=== PATIENT | female | born 1985 | race Caucasian/White ===

== ENCOUNTER 2023-03-10 12:04 | Emergency (ER) | payer OTHER, SELFPAY ==
[2023-03-10] VITALS (8 sets, daily range): BP systolic 114–145; BP diastolic 68–93; PULSE 60–81; RESP 16–24; O2SAT 100; BMI 28.3
--- NOTE | 2023-03-10 12:21 | ECG_ITS ---
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 Measurements Intervals [place] Rate: 76 P: 134 LA: 140 QRS: 127 QRSD: 106 T: 91 QT: 381 QTc: 429 Interpretive Statements SINUS RHYTHM WITH SINUS ARRHYTHMIA ARM LEADS REVERSED [INVERTED P AND QRS IN I] No previous ECG available for comparison Electronically Signed On 03-11-2023 5:58:45 CDT by Adina Acosta M.D. [email or web address]
--- NOTE | 2023-03-10 12:34 | CT_ITS ---
WS: [id number] CT HEAD NONCONTRAST HISTORY: AMS TECHNIQUE: Contiguous axial imaging performed through the brain in 2.5 mm imaging. Bone and soft tiss ue windows. Sagittal and coronal reformats reviewed. All CT scans at [facility] use at least one of these dose optimization techniques: automated exposure control; mA and/or kV adjustment per pa tient size (includes targeted exams where dose is matched to clinical indication); or iterative recon struction. DLP: 1111.20 mGy.cm COMPARISON: None available. No acute intracranial hemorrhage, midline shift or mass effect. No atrophy or prior infarcts or herniation. Ventricles: Normal size with no hydrocephalus. Paranasal sinuses: As visualized are clear. Mastoid air cells: Well pneumatized. Calvarium and scalp: Skull is intact with no soft tissue edema or swelling. CT/CT head wo con* [id number] IMPRESSION: Negative head CT.
[2023-03-10 12:40] LABS: Basophils % 0.7 %; Eosinophils # 0.1 10^3/uL (0.0-0.8); Eosinophils % 1.3 %; Hemoglobin 13.8 g/dL (11.5-15.3); Lymphocytes # 2.1 10^3/uL (0.8-4.8); Lymphocytes % 35.4 %; Mean Corpuscular HGB Conc 32.1 g/dL (30.0-36.0); Mean Corpuscular Volume 90.3 fl (81-99); Mean Platelet Volume 10.7 fL (7.4-10.4); Monocytes # 0.3 10^3/uL (0.2-0.9); Monocytes % 4.9 %; Neutrophils # 3.42 10^3/uL (1.8-7.7); Neutrophils % 57.5 %; Nucleated Red Blood Cells % 0 %; Platelet Count 264 10^3/cmm (130-400); Red Blood Count 4.76 10^6/uL (4.1-5.3); Red Cell Distribution Width 13.1 % (12.1-15.1); White Blood Count 5.9 10^3/uL (4.0-10.0)
[2023-03-10 13:05] LABS: Alanine Aminotransferase 36 U/L (0-33); Albumin Level 4.8 g/dL (3.5-5.2); Alkaline Phosphatase 52 U/L (35-105); Anion Gap 12.8 (5-19); Aspartate Amino Transferase 25 U/L (0-32); Blood Urea Nitrogen 7 mg/dL (6-20); Calcium 9.3 mg/dL (8.5-10.5); Carbon Dioxide 26 mmol/L (22-29); Chloride 103 mmol/L (98-107); Globulin 2.9 g/dL (1.3-4.6); Glomerular Filtration Rate 112.5 mL/min (90-130); Glucose 82 mg/dL (65-115); HCG, Serum Qual Negative (Negative); Lipase 28 U/L (13-60); Osmolality Calculated 283 mOsm/kg (285-295); Potassium 3.8 mmol/L (3.5-5.1); Sodium 138 mmol/L (136-145); Total Bilirubin 0.3 mg/dL (0.15-1.2); Total Protein 7.7 g/dL (6.6-8.7)
[2023-03-10 13:06] LABS: Acetaminophen < 5.0 ug/mL (10-30); Salicylate < 0.3 mg/dL (3-10)
--- NOTE | 2023-03-10 13:07 | ED_ITS ---
HPI - General Adult General: Chief complaint: Neuro Symptoms/Deficit Stated complaint: AMS,DIZZY Time Seen by Provider: 03/10/23 12:10 Source: patient Mode of arrival: ambulatory History of Present Illness: 37-year-old female who presents to the emergency room complaining of dizziness. States last several days she has not felt herself that she is dizzy at times she drove herself in to be seen. No vomiting no fever sweats or chills. No headache no recent trauma. She denies using any drugs or alcohol. Onset (ago): minute(s) Location: head Severity: mild Relieving factors: none Exacerbating factors: none Associated symptoms: Deny chest pain, confusion, cough, diaphoresis, decreased appetite, dyspnea, fevers/chills, headache(s), malaise, nausea, rash, palpitations, seizures, short of breath, syncope, vomiting or weakness Treatments prior to arrival: none Review of Systems Const: Denies: fever(s), chills, fatigue, malaise or diaphoresis ENMT: Denies: throat pain, ear or mastoid pain, nasal discharge or nasal sridevi estion Card: Denies: chest pain, palpitations or syncope Resp: Denies: dyspnea GI: Denies: abdominal pain, nausea or vomiting : Denies: flank pain, difficulty voiding, dysuria, urinary frequency or urinary urgency Skin/Breast: Denies: rash Neuro: Denies: headache(s) or confusion [facility] ED Female Reproductive History: Date of last menstrual period: 03/07/23 Physical Exam Const: GENERAL APPEARANCE: cooperative and comfortable ORIENTATION/CONSCIOUSNESS: Yes awake, Yes oriented to person, Yes oriented to place and Yes oriented to time HENMT: COMMON NORMALS: normocephalic, atraumatic and hearing grossly normal bilaterally HEAD & SCALP: normocephalic and atraumatic Resp: COMMON NORMALS: normal respiratory effort, No retractions, No use of accessory muscles and clear to auscultation bilaterally AUSCULTATION: clear to auscultation bilaterally Cardio: COMMON NORMALS: regular rate, regular rhythm and No murmurs present (Cardio) RATE: regular rate RHYTHM: regular rhythm GI: COMMON NORMALS: Soft to palpation and No hepatosplenomegaly present AUSCULTATION: Yes normoactive bowel sounds PALPATION: Yes Soft to palpation, No Tenderness to palpation present (GI), No Guarding due to palpation present (GI) and Yes No hepatosplenomegaly present Extremity: COMMON NORMALS: normal to inspection, capillary refill normal, no clubbing, cyanosis or edema, no calf tenderness and no pedal edema Neuro: SENSORIUM/ORIENTATION: Yes oriented to person, Yes oriented to place and Yes oriented to time Skin: COMMON NORMALS: no rashes or lesions noted GENERAL SKIN EXAM: no rashes or lesions noted Course Vital Signs: Vital signs: Vital Signs Pulse Rate 81 03/10/23 15:23 Respiratory Rate 24 H 03/10/23 14:00 Blood Pressure 118/77 03/10/23 15:23 Pulse Oximetry 100 03/10/23 15:23 Oxygen Delivery Me thod Room Air 03/10/23 13:30 MDM - General Adult Medical Decision Making CT CTA of the head and neck are all negative. She did have slurred speech when she first arrived the only positive finding on exam or labs. Positive marijuana screen she did admit to using marijuana and states she has not used any today but the time the work-up was complete all of her symptoms are completely resolved she is feeling much better and she would like to go home. Her stroke score was a 1 for dysarthria which has resolved. She would like to go home and do not really have anything requiring admission at this point if she has recurrent symptoms return to the emergency room. Medical Records I reviewed the patient's medical records. Lab Data I reviewed the patient's lab results. 03/10/23 12:30 03/10/23 12:[address] 03/10/23 12:34 IMPRESSION: Negative head CT. Head/Neck CTA 03/10/23 13:18 IMPRESSION: 1. Normal carotid arteries. 2. Unremarkable [place]. Laboratory Results WBC 5.9 10^3/uL (4.0-10.0) 03/10/23 12:30 RBC 4.76 10^6/uL (4.1-5.3) 03/10/23 12:30 Hgb 13.8 g/dL (11.5-15.3) 03/10/23 12:30 Hct 43.0 % (37.0-47.0) 03/10/23 12:30 MCV 90.3 fl (81-99) 03/10/23 12:30 MCH 29.0 pg (28.0-34.0) 03/10/23 12:30 MCHC 32.1 g/dL (30.0-36.0) 03/10/23 12:30 RDW 13.1 % (12.1-15.1) 03/10/23 12:30 Plt Count 264 10^3/cmm (130-400) 03/10/23 12:30 MPV 10.7 fL (7.4-10.4) H 03/10/23 12:30 Neut % (Auto) 57.5 % 03/10/23 12:30 Lymph % (Auto) 35.4 % 03/10/23 12:30 [place] % (Auto) 4.9 % 03/10/23 12:30 Eos % (Auto) 1.3 % 03/10/23 12:30 Baso % (Auto) 0.7 % 03/10/23 12:30 Neut # (Auto) 3.42 10^3/uL (1.8-7.7) 03/10/23 12:30 Lymph # (Auto) 2.1 10^3/uL (0.8-4.8) 03/10/23 12:30 [place] # (Auto) 0.3 10^3/uL (0.2-0.9) 03/10/23 12:30 Eos # (Auto) 0.1 10^3/uL (0.0-0.8) 03/10/23 12:30 Baso # (Auto) 0.0 10^3/uL (0.0-0.1) 03/10/23 12:30 Nucleated RBC % (auto) 0 % 03/10/23 12:30 Nucleated RBCs # 0.0 /100WBC 03/10/23 12:30 Sodium 138 mmol/L (136-145) 03/10/23 12:30 Potassium 3.8 mmol/L (3.5-5.1) 03/10/23 12:30 Chloride 103 mmol/L (98-107) 03/10/23 12:30 Carbon Dioxide 26 mmol/L (22-29) 03/10/23 12:30 Anion Gap 12.8 (5-19) 03/10/23 12:30 BUN 7 mg/dL (6-20) 03/10/23 12:30 Creatinine 0.6 mg/dL (0.5-0.9) 03/10/23 12:30 GFR Calculation 112.5 mL/min (90-130) 03/10/23 12:30 Glucose 82 mg/dL (65-115) 03/10/23 12:30 Calculated Osmolality 283 mOsm/kg (285-295) L 03/10/23 12:30 Lactic Acid 0.9 mmol/L (0.5-2.2) 03/10/23 13:06 Calcium 9.3 mg/dL (8.5-10.5) 03/10/23 12:30 Total Bilirubin 0.3 mg/dL (0.15-1.2) 03/10/23 12:30 AST 25 U/L (0-32) 03/10/23 12:30 ALT 36 U/L (0-33) H 03/10/23 12:30 Alkaline Phosphatase 52 U/L (35-105) 03/10/23 12:30 Total Protein 7.7 g/dL (6.6-8.7) 03/10/23 12:30 Albumin 4.8 g/dL (3.5-5.2) 03/10/23 12:30 Globulin 2.9 g/dL (1.3-4.6) 03/10/23 12:30 Lipase 28 U/L (13-60) 03/10/23 12:30 HCG, Qual Negative (Negative) 03/10/23 12:30 Urine Color Yellow (Yellow) 03/10/23 14:23 Urine Appearance Clear (CLEAR) 03/10/23 14:23 Urine pH 8 (5-7) H 03/10/23 14:23 Ur Specific [place] 1.010 (1.005-1.030) 03/10/23 14:23 Urine Protein Neg (Negative) 03/10/23 14:23 Urine Glucose (UA) Norm (Normal) 03/10/23 14:23 Urine Ketones Negative (Negative) 03/10/23 14:23 Urine Blood Neg (Negative) 03/10/23 14:23 Urine Nitrate Negative (Negative) 03/10/23 14:23 Urine Bilirubin Neg (Negative) 03/10/23 14:23 Prot Sulfosalicylic Acd Negative (Negative) 03/10/23 14: Urine Urobilinogen Neg mg/dL (Negative) 03/10/23 14:23 Ur Leukocyte Esterase Negative (Negative) 03/10/23 14:23 Salicylates < 0.3 mg/dL (3-10) L 03/10/23 12:30 Urine Opiates Screen Negative ng/mL (Negative) 03/10/23 14:23 Acetaminophen < 5.0 ug/mL (10-30) L 03/10/23 12:30 Ur Barbiturates Screen Negative ng/mL (Negative) 03/10/23 14:23 Ur Phencyclidine Scrn Negative ng/mL (Negative) 03/10/23 14:23 Ur Amphetamines Screen Negative ng/mL (Negative) 03/10/23 14:23 U Benzodiazepines Scrn Negative ng/mL (Negative) 03/10/23 14:23 Urine Cocaine Screen Negative ng/mL (Negative) 03/10/23 14:23 U Marijuana (THC) Screen Positive ng/mL (Negative) H 03/10/23 14:23 Ethyl Alcohol < 10 mg/dL (0-10) 03/10/23 12:30 Discharge Plan Discharge Patient Disposition: Home Clinical Impression: Mental status change resolved Condition: Stable Discharge Orders: Discharge ED (Routine); Ordered 03/10/23 Ordered By: Samuel Lugo Discharge Diet: Usual diet Discharge Activity: Increase activity as tolerated Patient Instructions: Opioid Safety, Pain Management Activity Restrictions/Additional Instructions: You are seen today after an episode of altered mental status which resolved later in the emergency room. CT of your head and laboratory studies were unremarkable. Recommend you follow-up with your doctor within the next week return to the emergency room if your symptoms recur. 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
--- NOTE | 2023-03-10 13:18 | CT_ITS ---
WS: [id number] CT ANGIOGRAM CEREBRAL AND CAROTID ARTERIES HISTORY: slurred speech TECHNIQUE: CT angiogram is performed of the carotid and cerebral arteries. During arterial injection imaging is obtained from the skull vertex to the aortic arch in 1.25 mm imaging. Coronal and sagittal reformats are submitted. Additional multi planar reformats of the carotid and cerebral arteries are submitted, MIP imaging also reviewed. NASCET criteria utilized. All CT scans at [facility] us e at least one of these dose optimization techniques: automated exposure control; mA and/or kV adjust ment per patient size (includes targeted exams where dose is matched to clinical indication); or iter ative reconstruction. CONTRAST: Omnipaque 350; 100 mL IV. DLP: 512.09 mGy.cm COMPARISON: CT head 03/10/2023 Carotid Angiogram: Right carotid: Common carotid artery: Arises normally from the innominate artery. No significant plaque or stenosis. Internal carotid artery: No plaque or stenosis. External carotid artery: Patent. Left carotid: Common carotid artery: Arises normally from the aorta. No significant plaque or stenosis. Internal carotid artery: No plaque or stenosis. External carotid artery: Patent. Right vertebral artery: Unremarkable. Left vertebral artery: Unremarkable. Arises normally from the subclavian artery. Subclavian arteries: No stenosis or significant abnormality. Upper thorax: Normal. Thyroid gland: Normal. Osseous structures: Unremarkable. CEREBRAL ANGIOGRAM: Intracranial vertebral arteries: Normal with no significant atherosclerosis. Basilar artery: No significant stenosis or occlusion. No aneurysm. Intracranial Internal carotid arteries: Demonstrates no significant stenosis or plaque. Middle cerebral arteries: Normal. Anterior cerebral arteries and ACOM: Normal. Posterior cerebral arteries and PCOM's: Normal. Dural venous sinuses are normally enhancing. Mastoid air cells: Normal. Paranasal sinuses: Normal. Calvarium: Normal. CT/CT angio headneck* [id number] IMPRESSION: 1. Normal carotid arteries. 2. Unremarkable [place].
[2023-03-10] MEDS: sodium chloride 0.9% 1,000 ML 999 ML IV (13:19)
[2023-03-10] MEDS: iohexol 350 mg/mL 500 mL Btl (per mL) IV (13:40)
--- NOTE | 2023-03-10 13:42 | PC.NURSE ---
Patient hooked up to continuous bedside cardiac monitoring.
[2023-03-10 14:02] LABS: Lactic Sepsis W/Reflex 0.9 mmol/L (0.5-2.2)
[2023-03-10 14:39] LABS: Add Urine Microscopic? NO; Charge for UA Resulting for Rev
[2023-03-10 14:48] LABS: Bilirubin Urine Neg (Negative); Blood Urine Neg (Negative); Glucose Urine UA Norm (Normal); Ketones Urine Negative (Negative); Leukocyte Esterase Urine Negative (Negative); Nitrate Urine Negative (Negative); Protein Urine Neg (Negative); Sulfosalicylic Acid Urine Negative (Negative); Urine Appearance Clear (CLEAR); Urine Color Yellow (Yellow); Urobilinogen Urine Neg (Negative); pH Urine 8 (5-7)
[2023-03-10 14:50] LABS: Amphetamines Screen Urine Negative (Negative); Barbiturates Screen Urine Negative (Negative); Benzodiazepines Screen Urine Negative (Negative); Cocaine Screen Urine Negative (Negative); Opiate Screen Urine Negative (Negative); PCP Screen Urine Negative (Negative); THC Screen Urine Positive (Negative)
[2023-03-10 15:14] LABS: Alcohol Level < 10 mg/dL (0-10)
== END 2023-03-10 15:24 | disposition home or self-care (01) ==
PROVIDERS: Emergency Provider Family Medicine; PCP Nurse Practitioner
DX: R41.82 Altered mental status, unspecified (principal)
CPT/HCPCS: 36415; 70450; 70496; 70498; 80053; 80306; 80307; 81003; 83605; 83690; 84703; 85025; 93005; 96360; 99285; J7030; Q9967